=== PATIENT | male | born 1985 | race Two or more races ===

== ENCOUNTER 2019-07-15 18:31 | Emergency (ER) | payer SELFPAY ==
--- NOTE | 2019-07-15 19:16 | ER Document Report ---
ED Medical Screen (RME) - General Chief Complaint: Chest Pain Stated Complaint: CHEST PAIN Time Seen by Provider: 07/15/19 19:11 Mode of Arrival: Ambulatory Information source: Patient Notes: 33-year-old male presented to ED for complaint of chest pain for about a month. He states he went to a hospital in [place] and they told him he had swelling in his lung and gave him some medicine for the inflammation but he has not gotten any better. He states he has had the chest pain now for over a month. He states due to his work he travels a lot and he is now in [place]. He would like to get this chest pain evaluated. States the chest pain goes from the center of his chest around to the right around to the back. Denies any nausea or vomiting. He states the pain is much better when he coughs sneezes or lays down flat. He states he smokes a Rody. He states he drinks a beer a day denies any use of drugs. I have greeted and performed a rapid initial assessment of this patient. A comprehensive ED assessment and evaluation of the patient, analysis of test results and completion of medical decision making process will be conducted by an additional ED providers. Physical Exam - Vital signs Vitals: Temp Pulse BP Pulse Ox 98.0 F 74 118/63 99 07/15/19 18:45 07/15/19 18:45 07/15/19 18:45 07/15/19 18:45 Course - Vital Signs Vital signs: Temp Pulse Resp BP Pulse Ox 98.0 F 74 118/63 99 07/15/19 18:45 07/15/19 18:45 07/15/19 18:45 07/15/19 18:45
[2019-07-15] MEDS ORDERED: ASPIRIN 81 MG TABLET, CHEWABLE PO ONE (19:17)
[2019-07-15 19:40] LABS: ABSOLUTE BASOPHILS # (AUTO) 0.1 10^3/uL (0.0-0.2); ABSOLUTE EOSINOPHILS # (AUTO) 0.3 10^3/uL (0.0-0.6); ABSOLUTE LYMPHOCYTES (AUTO) 2.3 10^3/uL (0.5-4.7); ABSOLUTE MONOCYTES (AUTO) 0.7 10^3/uL (0.1-1.4); ABSOLUTE NEUT (AUTO) 3.5 10^3/uL (1.7-8.2); EOSINOPHILS % (AUTO) 4.7 % (0-6); HEMATOCRIT 46.1 % (37.9-51.0); HEMOGLOBIN 15.7 g/dL (13.5-17.0); LYMPHOCYTES % (AUTO) 33.1 % (13-45); MEAN CORPUSCULAR HEMOGLOBIN 30.3 pg (27.0-33.4); MEAN CORPUSCULAR HGB CONC 34.1 g/dL (32.0-36.0); MEAN CORPUSCULAR VOLUME 89 fl (80-97); MONOCYTES % (AUTO) 10.2 % (3-13); PLATELET COUNT 313 10^3/uL (150-450); RED BLOOD COUNT 5.19 10^6/uL (4.35-5.55); RED CELL DISTRIBUTION WIDTH 13.5 % (11.5-14.0); TOTAL CELLS COUNTED % (AUTO) 100 %; WHITE BLOOD COUNT 6.8 10^3/uL (4.0-10.5)
--- NOTE | 2019-07-15 19:47 | RADIOLOGY REPORT (SQ) ---
EXAM DESCRIPTION: CHEST 2 VIEWS COMPLETED DATE/TIME: 07/15/2019 7:36 pm REASON FOR STUDY: chest pain COMPARISON: None. EXAM PARAMETERS: NUMBER OF VIEWS: two views TECHNIQUE: Digital Frontal and Lateral radiographic views of the chest acquired. RADIATION DOSE: NA LIMITATIONS: none FINDINGS: LUNGS AND PLEURA: No opacities, masses or pneumothorax. No pleural effusion. MEDIASTINUM AND HILAR STRUCTURES: No masses or contour abnormalities. HEART AND VASCULAR STRUCTURES: Heart normal size. No evidence for failure. BONES: No acute findings. HARDWARE: None in the chest. OTHER: No other significant finding. IMPRESSION: NO ACUTE RADIOGRAPHIC FINDING IN THE CHEST. TECHNICAL DOCUMENTATION: JOB ID: [id number] [employer]- All Rights Reserved Reading location - IP/workstation name: [email or web address]
[2019-07-15 19:52] LABS: APPEARANCE,URINE CLEAR; BILIRUBIN,URINE NEGATIVE (NEGATIVE); COLOR,URINE STRAW; GLUCOSE, URINE NEGATIVE (NEGATIVE); KETONES,URINE NEGATIVE (NEGATIVE); PROTEIN,URINE NEGATIVE (NEGATIVE); UROBILINOGEN,URINE NEGATIVE mg/dL (<2.0)
[2019-07-15 19:58] LABS: ALBUMIN 4.9 g/dL (3.5-5.0); ALKALINE PHOSPHATASE 99 U/L (38-126); ANION GAP 10 (5-19); ASPARTATE AMINO TRANSFERASE 27 U/L (17-59); BILIRUBIN,DIRECT 0.1 mg/dL (0.0-0.4); BILIRUBIN,TOTAL 0.5 mg/dL (0.2-1.3); BLOOD UREA NITROGEN 11 mg/dL (7-20); CALCIUM 10.5 mg/dL (8.4-10.2); CARBON DIOXIDE 30 mmol/L (22-30); CHLORIDE 100 mmol/L (98-107); GLUCOSE 92 mg/dL (75-110); POTASSIUM 4.3 mmol/L (3.6-5.0)
[2019-07-15 19:59] LABS: ALCOHOL < 10 mg/dL (NONE DETECTED)
[2019-07-15 20:07] LABS: URINE AMPHETAMINES SCREEN NEGATIVE; URINE BARBITURATES SCREEN NEGATIVE; URINE BENZODIAZEPINES SCREEN NEGATIVE; URINE COCAINE SCREEN NEGATIVE; URINE MARIJUANA (THC) SCREEN NEGATIVE; URINE METHADONE SCREEN NEGATIVE; URINE PHENCYCLIDINE SCREEN NEGATIVE
[2019-07-15] MEDS ORDERED: IBUPROFEN 800 MG TABLET PO ONE (21:04)
[2019-07-15] MEDS ORDERED: BENZONATATE 100 MG CAPSULE PO ONE (21:04)
--- NOTE | 2019-07-15 22:13 | ER Document Report ---
Entered by YINA OJEDA SCRIBE 07/15/192034 Acting as scribe for:ALEM PONCE IV, MD ED General - General Chief Complaint: Chest Pain Stated Complaint: CHEST PAIN Time Seen by Provider: 07/15/19 19:11 Primary Care Provider: COURTNEY,JOHNNY [Primary Care Provider] - Follow up as needed Mode of Arrival: Ambulatory Information source: Patient Notes: This 33-year-old male patient presents to the emergency department today with complaints of reproducible pleuritic type chest pain for the last month. Patient states that he was diagnosed with bronchitis a few weeks ago when this pain began. Patient states he was prescribed lidocaine patches, promethazine with codeine, and orphenadrine for this pain. Patient's pain is reproducible and is exacerbated with coughing, sneezing, and certain movements. Patient is a smoker, stating he used to smoke menthols and now smokes Juul pods. Pertinent PMHx/PSHx: Smoker, recent dx bronchitis - additional PMHx/PSHx not pertinent to this visit as recorded. PCP: none TRAVEL OUTSIDE OF THE [place] IN LAST 30 DAYS: No - Related Data Allergies/Adverse Reactions: No Known Allergies Allergy (Verified 07/15/19 19:17) Past Medical History - General Information source: Patient - Social History Smoking Status: Former Smoker Cigarette use (# per day): No Chew tobacco use (# tins/day): No Frequency of alcohol use: 1 beer daily Drug Abuse: None Lives with: Family Family History: Reviewed & Not Pertinent Patient has suicidal ideation: No Patient has homicidal ideation: No Past Surgical History: Reports: Hx Orthopedic Surgery - back Review of Systems - Review of Systems Constitutional: No symptoms reported EENT: No symptoms reported Cardiovascular: See HPI, Other - Reproducible chest wall pain Respiratory: See HPI, Cough Gastrointestinal: No symptoms reported Genitourinary: No symptoms reported Male Genitourinary: No symptoms reported Musculoskeletal: No symptoms reported Skin: No symptoms reported Hematologic/Lymphatic: No symptoms reported Neurological/Psychological: No symptoms reported -: Yes All other systems reviewed and negative Physical Exam - Vital signs Vitals: Temp Pulse BP Pulse Ox 98.0 F 74 118/63 99 07/15/19 18:45 07/15/19 18:45 07/15/19 18:45 07/15/19 18:45 - Notes Notes: Physical Exam: General: Alert, appears well. HEENT: Normocephalic. Atraumatic. PERRL. Extraocular movements intact. Orop harynx clear. Neck: Supple. Non-tender. Respiratory: No respiratory distress. Clear and equal breath sounds bilaterally. Reproducible chest pain. Tenderness to palpation along the fifth rib on the right-hand side wrapping around to the back. Pain is reproduced with palpation, coughing, and certain movements. Cardiovascular: Regular rate and rhythm. Abdominal: Normal Inspection. Non-tender. No distension. Normal Bowel Sounds. Back: No gross abnormalities. Extremities: Moves all four extremities. Upper extremities: Normal inspection. Normal ROM. Lower extremities: Normal inspection. No edema. Normal ROM. Neurological: Normal cognition. AAOx4. Normal speech. Psychological: Normal affect. Normal Mood. Skin: Warm. Dry. Normal color. Course - Re-evaluation Re-evalutation: 07/15/19 22:14 Patient is in no acute distress at this time. Results of ED MSE discussed with patient. Patient was counseled to stop vaping, instructed on the use of [id number] nicotine patches, educated on the diagnosis of costochondritis, educated on the medications he is going to be prescribed upon discharge. All questions were answered prior to discharge. Emergency signs and symptoms, reasons to return to the ED by calling 911 discussed with the patient. Patient states he understands reasons to return to the ER and to call 911. - Vital Signs Vital signs: Temp Pulse Resp BP Pulse Ox 98.0 F 74 118/63 99 07/15/19 18:45 07/15/19 18:45 07/15/19 18:45 07/15/19 18:45 07/15/19 22:17 All vital signs reviewed by this MD. - Laboratory Result Diagrams: 07/15/19 19:31 07/15/19 19:31 Laboratory results interpreted by me: 07/15/19 19:31 Calcium 10.5 H Total Protein 9.0 H 07/15/19 22:17 All laboratory results reviewed by this MD. - Diagnostic Test Radiology reviewed: Reports reviewed - EKG Interpretation by Me Additional EKG results interpreted by me: 07/15/19 20:46 EKG performed on 07/15/2019 at 1839 hrs. was reviewed by this MD. Findings: Sinus rhythm, rate 63, normal axis, P waves proceed QRS complexes, ST segments are not specific for signs of acute myocardial injury/ischemia/infarction. Impression normal sinus rhythm with nonspecific ST segments. Discharge - Discharge Clinical Impression: Costochondritis Condition: Good Disposition: HOME, SELF-CARE Instructions: Chest Wall Pain ([facility]) Additional Instructions: Return to the Emergency Department without delay if any worse. HOME CARE INSTRUCTIONS & INFORMATION: Thank you for choosing us for your medical needs. We hope you're satisfied with the care you received. After you leave, you must properly care for your problem and, at the same time, observe its progress. Any condition can change. Some illnesses can change rapidly over hours or days. If your condition worsens, return to the Emergency Department or see your physician promptly. ABOUT YOUR X-RAYS AND EKG'S: If you had an EKG or X-rays taken, they have been read by the Emergency Physician. The X-rays and EKG's will also be read by a Radiologist or Coil Repair Technician within 24 hours. If discrepancies are noted, you will be notified by telephone. Please be certain the ED has a correct telephone number & address where you can be reached. Also, realize that some fractures or abnormalities do not show up on initial X-rays. If your symptoms continue, see your physician. ABOUT YOUR LABORATORY TEST: If you had laboratory tests, the results have been reviewed by the Emergency Physician. Some test results (for example cultures) may not be available for several days. You will be contacted if any test result shows you need additional treatment. Please be certain the ED has a correct telephone number and address where you can be reached. ABOUT YOUR MEDICATIONS: You will receive instructions on how to take your medicine on the prescription label you receive. Additional information may be provided by the Pharmacy. If you have questions afterwards, call the ED for clarification or further instructions. Some prescribed medications may cause drowsiness. Do not perform tasks such as driving a car or operating machinery without consulting your Pharmacist. If you feel you need a refill of pain medication, your condition will need re-evaluation. Please do not call for a refill of any medication. ABOUT YOUR SIGNATURE: Signature of this document acknowledges to followin. Understanding that you received emergency treatment and that you may be released before al medical problems are known or treated. Please be certain the ED has a correct phone number & address where you can be reached. 2. Acknowledgement that you will arrange for follow-up care as recommended. 3. Authorization for the Emergency Physician to provide information to your follow-up Physician in order to maximize your care. AT ANY TIME, IF YOUR SYMPTOMS CHANGE SIGNIFICANTLY OR WORSEN OR YOU DEVELOP NEW SYMPTOMS, RETURN TO THE EMERGENCY DEPARTMENT IMMEDIATELY FOR RE-EVALUATION. OUR GOAL IS TO PROVIDE EXCELLENT MEDICAL CARE! WE HOPE THAT WE HAVE MET YOUR EXPECTATIONS DURING YOUR EMERGENCY DEPARTMENT VISIT AND THAT YOU FEEL YOU HAVE RECEIVED EXCELLENT CARE! Prescriptions: Benzonatate [Tessalon Perles 100 mg Capsule] 200 mg PO Q8HP PRN #30 capsule PRN Reason: Cough Ibuprofen [Ibu] 800 mg PO Q8A 10 Days #30 tablet Diclofenac Sodium [Voltaren] 100 gm TP TID PRN #100 gel..gm. PRN Reason: Forms: Smoking Cessation Education Referrals: LOCALMD,NO [Primary Care Provider] - Follow up as needed TREE ARCHULETA MD [HONORARY] - 07/19/19 I personally performed the services described in the documentation, reviewed and edited the documentation which was dictated to the scribe in my presence, and it accurately records my words and actions.
[2019-07-15 22:58] VITALS: BP 110/67
--- NOTE | 2019-07-16 12:04 | EKG REPORT ---
SEVERITY:- NORMAL ECG - SINUS RHYTHM : Confirmed by: Socrates Matthew 16-Jul-2019 12:03:48
== END 2019-07-15 22:50 | disposition home or self-care (01) ==
LOC: ER 18:31
DX: M94.0 Chondrocostal junction syndrome [Tietze] (principal); R07.9 Chest pain, unspecified; R07.81 Pleurodynia; R05 Cough; F17.299 Nicotine dependence, other tobacco product, with unspecified nicotine-induced disorders
CPT/HCPCS: 36415; 71046; 80053; 80307; 81001; 83690; 84484; 85025; 93005; 93010; 99285

== ENCOUNTER 2019-07-23 23:25 | Emergency (ER) | payer SELFPAY ==
--- NOTE | 2019-07-23 23:58 | EKG REPORT ---
SEVERITY:- NORMAL ECG - SINUS RHYTHM : Confirmed by: Olivia Reid MD 23-Jul-2019 23:57:22
--- NOTE | 2019-07-24 00:28 | RADIOLOGY REPORT (SQ) ---
EXAM DESCRIPTION: XR CHEST 2 VIEWS COMPLETED DATE/TME: 07/23/2019 23:43 CLINICAL HISTORY: 34 years, Male, CP COMPARISON: 07/15/2019 NUMBER OF VIEWS: Two TECHNIQUE: Two views of the chest LIMITATIONS: None. FINDINGS: The lungs are clear. The heart is normal in size. There is no pneumothorax. There is no acute fracture IMPRESSION: No acute cardiopulmonary abnormality. copyright 2010 [email or web address]- All Rights Reserved
[2019-07-24 00:47] LABS: ABSOLUTE EOSINOPHILS # (AUTO) 0.2 10^3/uL (0.0-0.6); ABSOLUTE LYMPHOCYTES (AUTO) 1.9 10^3/uL (0.5-4.7); ABSOLUTE MONOCYTES (AUTO) 0.8 10^3/uL (0.1-1.4); ABSOLUTE NEUT (AUTO) 2.8 10^3/uL (1.7-8.2); BASOPHILS % (AUTO) 0.5 % (0-2); EOSINOPHILS % (AUTO) 3.7 % (0-6); HEMATOCRIT 43.5 % (37.9-51.0); HEMOGLOBIN 14.9 g/dL (13.5-17.0); LYMPHOCYTES % (AUTO) 33.1 % (13-45); MEAN CORPUSCULAR HEMOGLOBIN 30.6 pg (27.0-33.4); MEAN CORPUSCULAR HGB CONC 34.2 g/dL (32.0-36.0); MEAN CORPUSCULAR VOLUME 90 fl (80-97); MONOCYTES % (AUTO) 14.1 % (3-13); PLATELET COUNT 276 10^3/uL (150-450); RED BLOOD COUNT 4.86 10^6/uL (4.35-5.55); RED CELL DISTRIBUTION WIDTH 13.3 % (11.5-14.0); SEGMENTED NEUTROPHILS % (AUTO) 48.6 % (42-78); TOTAL CELLS COUNTED % (AUTO) 100 %; WHITE BLOOD COUNT 5.7 10^3/uL (4.0-10.5)
[2019-07-24 01:04] LABS: ALBUMIN 4.3 g/dL (3.5-5.0); ALKALINE PHOSPHATASE 102 U/L (38-126); ANION GAP 7 (5-19); ASPARTATE AMINO TRANSFERASE 24 U/L (17-59); BILIRUBIN,DIRECT 0.2 mg/dL (0.0-0.4); BILIRUBIN,TOTAL 0.3 mg/dL (0.2-1.3); BLOOD UREA NITROGEN 15 mg/dL (7-20); CALCIUM 10.1 mg/dL (8.4-10.2); CARBON DIOXIDE 30 mmol/L (22-30); CHLORIDE 102 mmol/L (98-107); GLUCOSE 112 mg/dL (75-110); POTASSIUM 4.1 mmol/L (3.6-5.0)
--- NOTE | 2019-07-24 01:51 | ER Document Report ---
ED General - General Chief Complaint: Chest Pain Stated Complaint: CHEST PAIN Time Seen by Provider: 07/24/19 01:46 Primary Care Provider: JOHNNY VALDEZ [NO LOCAL MD] - Follow up as needed Mode of Arrival: Ambulatory Information source: Patient TRAVEL OUTSIDE OF THE [place] IN LAST 30 DAYS: No - HPI Patient complains to provider of: Chest Pain Onset: Other - over the last 1.5 months Onset/Duration: Gradual Quality of pain: Sharp, Stabbing Severity: Moderate Pain Level: 3 Associated symptoms: Chest pain, Nonproductive cough Exacerbated by: Coughing, Deep breathing, Other - palpation of chest Relieved by: Remaining still Similar symptoms previously: No Recently seen / treated by doctor: Yes - patient was seen in Jun in this ER for the same Notes: 34 year old male with no signficiant PMH here for reproducible chest pain for the last 1-2 months. The patient was seen in Jun at this ER and he was told he may have costochondritis or another cause of pleuritic chest pain. The patient denies trauma to his chest. The patient says taking a deep breath makes the pain worse. The patient denies fevers, chills, sweats, nausea, vomiting, productive cough. - Related Data Allergies/Adverse Reactions: No Known Allergies Allergy (Verified 07/15/19 19:17) Past Medical History - Social History Smoking Status: Former Smoker - currently vapes Frequency of alcohol use: Social Drug Abuse: None Family History: Reviewed & Not Pertinent Patient has suicidal ideation: No Patient has homicidal ideation: No - Medical History Medical History: Negative - Past Medical History Cardiac Medical History: Reports: None Pulmonary Medical History: Reports: None EENT Medical History: Reports: None Neurological Medical History: Reports: None Endocrine Medical History: Reports: None Renal/ Medical History: Reports: None Malignancy Medical History: Reports None GI Medical History: Reports: None Musculoskeletal Medical History: Reports None Skin Medical History: Reports None Psychiatric Medical History: Reports: None Traumatic Medical History: Reports: None Infectious Medical History: Reports: None Past Surgical History: Reports: Hx Orthopedic Surgery - back Review of Systems - Review of Systems Constitutional: No symptoms reported EENT: No symptoms reported Cardiovascular: No symptoms reported, Chest pain Respiratory: Short of breath Gastrointestinal: No symptoms reported Genitourinary: No symptoms reported Male Genitourinary: No symptoms reported Musculoskeletal: No symptoms reported Skin: No symptoms reported Hematologic/Lymphatic: No symptoms reported Neurological/Psychological: No symptoms reported Physical Exam - Vital signs Vitals: Temp Pulse Resp BP Pulse Ox 97.8 F 89 18 116/66 98 07/23/19 23:35 07/23/19 23:35 07/23/19 23:35 07/23/19 23:35 07/23/19 23:35 - Notes Notes: GENERAL: Well-appearing, well-nourished and in no acute distress. HEAD: Atraumatic, normocephalic. EYES: Pupils equal round and reactive to light, extraocular movements intact, sclera anicteric, conjunctiva are normal. ENT: Nares patent, oropharynx clear without exudates. Moist mucous membranes. NECK: Normal range of motion, supple without lymphadenopathy or JVD. LUNGS: Breath sounds clear to auscultation bilaterally and equal. No wheezes rales or rhonchi. HEART: Regular rate and rhythm without murmurs, rubs or gallops. CHEST: Tender to palpation over right lateral and anterior chest wall with no crepitus. ABDOMEN: Soft, nontender, normoactive bowel sounds. No guarding, no rebound. No masses appreciated. EXTREMITIES: Normal range of motion, no pitting or edema. No clubbing or cyanosis. NEUROLOGICAL: Cranial nerves II through XII grossly intact. Normal speech, normal gait. PSYCH: Normal mood, normal affect. SKIN: Warm, Dry, normal turgor, no rashes or lesions noted. Course - Re-evaluation Re-evalutation: 07/24/19 03:24 The patient has had 1-2 months of pleuritic chest pain. Palpation of his chest makes the pain worse. The patient had an unremarkable work up in Nov in this ER for the same. Patient had a CTA chest today to rule out PE or other occult cause of his chest pain. CTA shows no acute process. Patient was told he has a muscle strain or mild inflammatory lung issue causing his pain. Patient was told to stop vaping and to use NSAIDS and Tylenol for pain. Patient is very low risk for ACS and his story is not consistent with ACS. Patient has no signs or symptoms of an infection and no PE seen on CTA today. Patient is safe for outpatient follow up. - Vital Signs Vital signs: Temp Pulse Resp BP Pulse Ox 97.8 F 89 12 108/63 97 07/23/19 23:39 07/23/19 23:39 07/24/19 03:01 07/24/19 03:00 07/24/19 03:01 - Laboratory Result Diagrams: 07/24/19 00:20 07/24/19 00:20 Laboratory results interpreted by me: 07/24/19 07/24/19 00:20 00:20 [place] % (Auto) 14.1 H Glucose 112 H - EKG Interpretation by Me EKG shows normal: Sinus rhythm, Martinez - normal, Intervals - normal Rate: Normal Rhythm: NSR Discharge - Discharge Clinical Impression: Pleuritic chest pain Condition: Stable Disposition: HOME, SELF-CARE Additional Instructions: You have had blood work, chest Xrays, and now a CT of your chest showing no acute process. Use Tylenol and the prescribed Naproxen for your chest pain which is likely musculoskeletal in nature. Also refrain from vaping or smoking of any kind. Follow up with a primary care doctor such as the one provided in your paperwork. Prescriptions: Naproxen 500 mg PO BID PRN #14 tablet PRN Reason: Forms: Smoking Cessation Education Referrals: JOHNNY VALDEZ [NO LOCAL MD] - Follow up as needed VEL HECTOR MD [COMMUNITY BASED STAFF] - Follow up as needed
--- NOTE | 2019-07-24 03:16 | RADIOLOGY REPORT (SQ) ---
EXAM DESCRIPTION: CT CHEST ANGIOGRAPHY WITHOUT THEN WITH IV CONTRAST COMPLETED DATE/TME: 07/24/2019 02:05 CLINICAL HISTORY: 34 years, Male, rule out PE COMPARISON: None. TECHNIQUE: Axial CT images of the chest were obtained after the administration of IV contrast. MPR and MIP reconstructions were performed. DLP 641 Images stored on PACS. All CT scanners at this facility use dose modulation, iterative reconstruction, and/or weight based dosing when appropriate to reduce radiation dose to as low as reasonably achievable (ALARA). [facility]: Dose Right [facility]: CareDose [facility]: Dose Right [facility]: Teradose 4D [facility]: [employer] LIMITATIONS: None. FINDINGS: No pulmonary embolism is detected to the segmental branches. The thyroid gland is normal. The central airways are patent. Heart is normal in size. The aorta appears unremarkable. There is no mediastinal or hilar lymphadenopathy. The lungs are clear. There is no pneumothorax or pleural effusion. There are no lytic or blastic bone lesions. The visualized portions of the upper abdomen are unremarkable. IMPRESSION: No CT evidence of acute pulmonary embolism. TECHNICAL DOCUMENTATION: Quality ID # [id number]: Final reports with documentation of one or more dose reduction techniques (e.g., Automated exposure control, adjustment of the mA and/or kV according to patient size, use of iterative reconstruction technique) copyright 2011 [employer]- All Rights Reserved
[2019-07-24 03:43] VITALS: BP 112/65
== END 2019-07-24 03:41 | disposition home or self-care (01) ==
LOC: ER 23:25
DX: R07.81 Pleurodynia (principal); R05 Cough; F17.290 Nicotine dependence, other tobacco product, uncomplicated
CPT/HCPCS: 36415; 71046; 71275; 80053; 84484; 85025; 93005; 93010; 99284